=== PATIENT | male | born 1960 | race Caucasian/White ===

== ENCOUNTER 2016-10-17 18:47 | Emergency (ER) | payer OTHER ==
--- NOTE | 2016-10-17 19:37 | EDM.PDOC ---
ED HPI GENERAL MEDICAL PROBLEM - General Chief Complaint: Lower Extremity Injury/Pain Stated Complaint: PT HURT LT BIG TOE Time Seen by Provider: 10/17/16 19:10 - History of Present Illness INITIAL COMMENTS - FREE TEXT/NARRATIVE: HISTORY AND PHYSICAL: History of present illness: The patient is a 56-year-old male who follows at the [facility] in [facility] ago where he lives and presented there 7 or 8 days ago with complaints of an infection in his left great toe. He was placed on antibiotics, doxycycline, and he has been compliant with taking those. He was referred to a basket sorter but had to come up to our area for work and was unable to follow-up. The patient says that the infection is much improved and shows me a picture of it when it started. 2. The patient presents today to our ED because the nail is lifting from the base and it is "barely holding on" and he thought it might need to be removed. He is otherwise systemically stable with no complaints. As he does not have much pain at the toe. Review of systems: As per history of present illness and below otherwise all systems reviewed and negative. Past medical history: As per history of present illness and as reviewed below otherwise noncontributory. Surgical history: As per history of present illness and as reviewed below otherwise noncontributory. Social history: No reported history of drug or alcohol abuse. Family history: As per history of present illness and as reviewed below otherwise noncontributory. Physical exam: Gen.: Well-developed mildly overweight man who is nontoxic and speaking clearly in the ED HEENT: Atraumatic, normocephalic, negative for conjunctival pallor or scleral icterus, mucous membranes moist, throat clear, neck supple, nontender, trachea midline. Lungs: Clear to auscultation, breath sounds equal bilaterally, chest nontender. Heart: S1S2, regular rate and rhythm rhythm no overt murmurs Abdomen: Soft, nondistended, nontender.NABS Genitourinary: Deferred. Rectal: Deferred. Extremities: Atraumatic, full range of motion without any defects or deficits. The legs are negative for cords or calf pain. Neurovascular unremarkable. At the left great toe there is minimal pink erythema and no soft tissue swelling no drainage but the toenail is visibly lifted from the base and adherent to one side of the base and not completely detached. There is no bleeding or drainage appreciated. There is no gross tenderness and the remainder of the foot is nontender without defects or deformities. Neuro: Awake, alert, oriented. Cranial nerves II through XII unremarkable. Cerebellum unremarkable. Motor and sensory unremarkable throughout. Exam nonfocal. Diagnostics: [] Therapeutics: [employer] and wound care supplies for home I discussed with the patient that removing the toenail at this point would not be beneficial and would expose him to potentially more infection. I recommended that he continue and finish the doxycycline that he has I will give him 3 additional days of that antibiotic. I told him that he needs to follow-up with a basket sorter to follow future toenail growth or lack of growth and told him the nail may grow back or it may not. At this point he understands that removing the toenail would not be beneficial and we will give him [employer] and wound care supplies to protect it until it lifts and removes naturally. Impression: Wound evaluation Definitive disposition and diagnosis as appropriate pending reevaluation and review of above. - Related Data Allergies Allergy/AdvReac Type Severity Reaction Status Date / Time Penicillins Allergy Other Verified 10/17/16 19:08 Review of Systems - Review of Systems Review Of Systems: ROS reveals no pertinent complaints other than HPI. ED EXAM, GENERAL - Physical Exam Exam: See Below (See dictation) Course - Vital Signs Last Recorded V/S: Last Vital Signs Temp 36.3 C 10/17/16 19:08 Pulse 81 10/17/16 19:08 Resp 18 10/17/16 19:08 BP 155/102 H 10/17/16 19:08 Pulse Ox 95 10/17/16 19:08 Departure - Departure Time of Disposition: 19:36 Disposition: Home, Self-Care 01 Condition: Good Clinical Impression: Encounter for evaluation of wound - Discharge Information Forms: ED Department Discharge Additional Instructions: The following information is given to patients seen in the emergency department who are being discharged to home. This information is to outline your options for follow-up care. We provide all patients seen in our emergency department with a follow-up referral. The need for follow-up, as well as the timing and circumstances, are variable depending upon the specifics of your emergency department visit. If you don't have a primary care physician on staff, we will provide you with a referral. We always advise you to contact your personal physician following an emergency department visit to inform them of the circumstance of the visit and for follow-up with them and/or the need for any referrals to a consulting specialist. The emergency department will also refer you to a specialist when appropriate. This referral assures that you have the opportunity for followup care with a specialist. All of these measure are taken in an effort to provide you with optimal care, which includes your followup. Under all circumstances we always encourage you to contact your private physician who remains a resource for coordinating your care. When calling for followup care, please make the office aware that this follow-up is from your recent emergency room visit. If for any reason you are refused follow-up, please contact the [facility] emergency department at and ask to speak to the emergency department charge nurse. Dr Tiffanie Almonte [address] [place] [id number] [facility]- Podiatry [address] [place] [phone] Fax: [phone] Please protect the toenail and allow it to lift and fall off naturally. Please continue the antibodies you have and fill the prescription for 3 more days. Please call and follow-up with one of our basket sorter or [facility] when you return home. Return to ER as needed and as discussed.
== END 2016-10-17 20:10 | disposition home or self-care (01) ==
LOC: MW.ED 18:47
CPT/HCPCS: 99282